=== PATIENT | male | born 1980 | race Caucasian/White ===

== ENCOUNTER 2021-12-30 09:23 | Emergency (ER) | payer SELFPAY ==
[~2021-12-30] VITALS: Ht 172.7 cm; Wt 108.9 kg
[2021-12-30 09:36] VITALS: BP 189/111
--- NOTE | 2021-12-30 09:40 | NUR ---
PT AMBULATED TO BED 2.
--- NOTE | 2021-12-30 09:43 | NUR ---
41 Y/O MALE BIB SELF DUE TO INTERMITTENT PENILE PAIN X TODAY. PT DENIES ANY TRAUMA/DISCHARGE. PT DENIES ANY ALLEVIATING/AGGREVATING FACTORS. PT DENIES CHEST PAIN, SOB. PT DENIES FEVER OR CHILLS. PT DENIES TAKING ANY MEDICATION PRIOR TO ARRIVAL.BED IN LOWEST POSITION/ BED RAIL X1. PT ALERT AND ORIENTED X4. PMH: HTN, HDL NKA
[2021-12-30] MEDS ORDERED: BENC TP (10:30)
[2021-12-30] MEDS ORDERED: MUPI2CRE22 TP (10:30)
[2021-12-30 10:52] VITALS: BP 189/111
--- NOTE | 2021-12-30 10:53 | NUR ---
Patient discharged with v/s stable. Written and verbal after care instructions given and explained. Patient alert, oriented and verbalized understanding of instructions. Ambulatory with steady gait. All questions addressed prior to discharge. ID band removed. Patient advised to follow up with PMD. Rx of BENADRYL, MUCPIROCIN given. Patient educated on indication of medication including possible reaction and side effects. Opportunity to ask questions provided and answered.
== END 2021-12-30 10:52 | disposition home or self-care (01) ==
LOC: MED 09:23
DX: N48.1 Balanitis (principal); Z79.899 Other long term (current) drug therapy; Z79.2 Long term (current) use of antibiotics
CPT/HCPCS: 99283